=== PATIENT | male | born 1945 | race Caucasian/White ===

== ENCOUNTER 2022-05-29 05:48 | Inpatient (IN) | payer MEDICARE ==
[2022-05-22 12:53] LABS: BASOPHILS % (AUTO) 0.7 % (0-1); EOSINOPHILS # (AUTO) 0.2 X10'3 (0-0.9); EOSINOPHILS % (AUTO) 3.4 % (0-6); LYMPHOCYTES # (AUTO) 1.2 X10'3 (1.1-4.8); LYMPHOCYTES % (AUTO) 19.6 % (21-51); MEAN CORPUSCULAR HEMOGLOBIN 33.4 PG (27.0-31.0); MEAN CORPUSCULAR HGB CONC 33.8 g/dL (33.0-36.5); MEAN CORPUSCULAR VOLUME 98.9 FL (78-98); MEAN PLATELET VOLUME 7.3 FL (7.4-10.4); MONOCYTES # (AUTO) 0.5 X10'3 (0-0.9); MONOCYTES % (AUTO) 9.1 % (2-12); NEUTROPHILS % (AUTO) 67.2 % (42-75); PRE OP HEMATOCRIT 45.7 % (42.0-52.0); PRE OP HEMOGLOBIN 15.4 g/dL (14.0-17.9); PRE OP PLATELET COUNT 189 X10'3 (140-440); RED BLOOD COUNT 4.62 X10'6 (4.70-6.10); RED CELL DISTRIBUTION WIDTH 13.4 % (11.5-14.5)
[2022-05-22 13:11] LABS: ALBUMIN 3.5 G/DL (3.4-5.0); ALBUMIN/GLOBULIN RATIO 0.9 (1.1-1.5); ALKALINE PHOSPHATASE 90 IU/L (46-116); BLOOD UREA NITROGEN 17 MG/DL (7-18); BUN/CREATININE RATIO 19.3 (5.4-32.0); CALCIUM 8.8 MG/DL (8.5-10.1); CHLORIDE 109 MMOL/L (99-107); CREATININE 0.88 MG/DL (0.60-1.10); PRE OP ALT 22 U/L (30-65); PRE OP ANION GAP 4 (8-16); PRE OP AST 12 U/L (10-37); PRE OP BILIRUB, TOTAL 1.3 MG/DL (0.0-1.0); PRE OP GLUCOSE 117 MG/DL (70-104); PRE OP POTASSIUM 4.1 MMOL/L (3.4-5.1); PRE OP SODIUM 142 MMOL/L (135-145); TOTAL CARBON DIOXIDE 28.8 MMOL/L (24-32); TOTAL PROTEIN 7.2 G/DL (6.4-8.2); eGFR 84 ML/MIN
[2022-05-29] VITALS (23 sets, daily range): BP systolic 104–154; BP diastolic 49–80
[~2022-05-29] VITALS: Ht 177.8 cm; Wt 83.9 kg
[~2022-05-29 05:48] MED LIST: ATOR10TA70 PO; BETA1TAB20 PO; LISI5TAB22 PO; NOR5T PO; OMEG-79 PO; acetaminophen 325mg tablet PO ONE; ceFAZolin inj. 2,000 MG in dextrose 5%-water 100 ML IV ONE; celeCOXIB 100mg capsule PO ONE; famotidine 20mg tablet PO ONE; gabapentin 300mg capsule PO ONE; metoclopramide 5 mg/ml inj IV ONE; oxyCODONE SR 10mg (sust. release) tab -2 tabs (20mg) PO ONE; tranexamic acid inj. 1,000 MG in normal saline IV soln 100ML IV ONE; vancomycin 1,500 MG in NS 300ml IV soln IV ONE
[2022-05-29] MEDS ORDERED: acetaminophen 325mg tablet PO PRN (06:25)
[2022-05-29] MEDS ORDERED: HYDROmorphone 1 mg/ml syringe IV PRN (06:25)
[2022-05-29] MEDS ORDERED: naloxone 0.4 mg/ml inj IV PRN (06:25)
[2022-05-29] MEDS ORDERED: HYDROmorphone inj. 0.5 MG/0.5 ML DISP.SYRIN IV PRN (06:25)
[2022-05-29] MEDS ORDERED: ondansetron/PF 4mg/2ml inj IV PRN ×2 (06:25→09:30)
[2022-05-29] MEDS ORDERED: magnesium hydroxide 30ml (MOM) UD suspension PO PRN (06:25)
[2022-05-29] MEDS ORDERED: bisacodyl 10mg suppository rectal RC PRN (06:25)
[2022-05-29] MEDS ORDERED: HYDROcodone/acetaminophen 10/325mg tab PO PRN (06:25)
[2022-05-29] MEDS ORDERED: diphenhydrAMINE 25mg capsule PO PRN ×2 (06:25)
[2022-05-29] MEDS: ringers solution, lacted 1,000 ML IV SCH ×3 (06:47→12:51)
[2022-05-29] MEDS ORDERED: ROPIVAcaine 0.5% (5mg/ml) 30ml vial ONE ×2 (07:59→08:17)
[2022-05-29] MEDS ORDERED: ketorolac trometh. 30mg/ml inj. ONE (08:00)
[2022-05-29] MEDS ORDERED: vancomycin 1,000mg inj ONE (08:00)
[2022-05-29] MEDS ORDERED: epiNEPHrine 1 mg/ml inj ONE (08:00)
[2022-05-29] MEDS ORDERED: cloNIDine hcl/PF 100mcg/ml inj ONE (08:00)
[2022-05-29] MEDS ORDERED: MIDAZolam 1mg/ml 10ml vial ONE (08:19)
[2022-05-29] MEDS ORDERED: fentaNYL/PF 50MCG/1 ML 2ML syringe ONE ×2 (08:19→08:46)
[2022-05-29] MEDS ORDERED: ringers solution, lacted 1,000 ML IV SCH (09:30)
[2022-05-29] MEDS ORDERED: ROPIVAcaine 0.2% (10 MG/5 ML) BOLUS INJECTION ADDCANAL PRN (09:30)
[2022-05-29] MEDS ORDERED: fentaNYL/PF 50MCG/1 ML 2ML syringe IV PRN ×2 (09:30)
[2022-05-29] MEDS ORDERED: enalaprilat dihydrate 2.5mg/2ml vial IV PRN (09:30)
[2022-05-29] MEDS ORDERED: morphine 2 MG/ML inj. syringe IV PRN (09:30)
[2022-05-29] MEDS ORDERED: hydrALAZINE 20mg/ml inj. IV PRN (09:30)
[2022-05-29] MEDS ORDERED: morphine 4 MG/ML inj SYRINge IV PRN (09:30)
[2022-05-29] MEDS ORDERED: ROPIVAcaine 0.2%/PF PUMP/bolus 545 ML ADDCANAL SCH (09:30)
[2022-05-29] MEDS ORDERED: ROPIVAcaine 0.5% (5mg/ml) 30ml vial IJ ONE (09:49)
--- NOTE | 2022-05-29 12:36 | NUR ---
PATIENT HAS MET ALL CRITERIA FOR TRANSFER TO [facility]TH[facility] FLOOR. VSS. DRESSINGS INTACT. BED LOW, CALL LIGHT PRESENT AND 2 RAILS UP. RN PRESENT TO ACCEPT CARE OF PATIENT AND REPORT HAS BEEN CALLED. ALL QUESTIONS ANSWERED TO ACCEPTING RN. Addendum: 05/29/22 at 1241 by Omid Pinedo RN Amended: Links added.
[2022-05-29] MEDS ORDERED: tranexamic acid inj. 840 MG in normal saline 100ml IV soln 100 ML IV ONE (13:00)
[2022-05-29] MEDS: gabapentin 300mg capsule PO SCH ×2 (13:13→20:05)
[2022-05-29] MEDS: potassium cl 20mEq in 1/2 NS 1,000 ML IV SCH ×2 (13:46→21:00)
[2022-05-29] MEDS: cefazolin/dext.iso 2gm/100ml 100 ML IV SCH (16:13)
--- NOTE | 2022-05-29 18:30 | NUR ---
Patient in room [facility]TH[facility] 4022. I have received report from CASSIDY MARIANO and had the opportunity to ask questions and assume patient care.
[2022-05-29] MEDS: ascorbic acid 500mg tablet PO SCH (20:04)
[2022-05-29] MEDS ORDERED: VANCOMYCIN 1,500MG inj. 1,500 MG in normal saline 500ml IV soln 300 ML IV ONE (21:00)
[2022-05-29] MEDS ORDERED: atorvastatin 10mg tablet PO SCH (21:00)
[2022-05-29] MEDS ORDERED: sennosides 8.6mg tablet PO SCH (21:00)
[2022-05-30] MEDS: cefazolin/dext.iso 2gm/100ml 100 ML IV SCH (00:06)
[2022-05-30] MEDS: potassium cl 20mEq in 1/2 NS 1,000 ML IV SCH (00:06)
[2022-05-30 02:00] VITALS: BP 155/85
[2022-05-30] MEDS: HYDROcodone/acetaminophen 10/325mg tab PO PRN ×2 (03:23→09:31)
[2022-05-30 06:00] VITALS: BP 153/75
--- NOTE | 2022-05-30 06:30 | NUR ---
Problems reprioritized. Patient report given, questions answered & plan of care reviewed with SANDY MARIANO.
--- NOTE | 2022-05-30 06:47 | NUR ---
Patient in room [facility]TH[facility] 4022. I have received report from Rickey and had the opportunity to ask questions and assume patient care.
[2022-05-30 07:03] LABS: BASOPHILS % (AUTO) 0.4 % (0-1); EOSINOPHILS # (AUTO) 0.1 X10'3 (0-0.9); EOSINOPHILS % (AUTO) 1.2 % (0-6); HEMATOCRIT 41.8 % (42.0-52.0); HEMOGLOBIN 14.2 g/dl (14.0-17.9); LYMPHOCYTES # (AUTO) 0.7 X10'3 (1.1-4.8); LYMPHOCYTES % (AUTO) 8.6 % (21-51); MEAN CORPUSCULAR HEMOGLOBIN 33.7 PG (27.0-31.0); MEAN CORPUSCULAR VOLUME 99.1 FL (78-98); MEAN PLATELET VOLUME 7.3 FL (7.4-10.4); MONOCYTES # (AUTO) 0.7 X10'3 (0-0.9); MONOCYTES % (AUTO) 8.8 % (2-12); NEUTROPHILS # (AUTO) 6.8 X10'3 (1.8-7.7); PLATELET COUNT 183 X10'3 (140-440); RED BLOOD COUNT 4.22 X10'6 (4.70-6.10); WHITE BLOOD COUNT 8.4 X10'3 (4.5-11.0)
[2022-05-30 07:13] LABS: ANION GAP 9 (8-16); CHLORIDE 102 MMOL/L (99-107); POTASSIUM 3.9 MMOL/L (3.5-5.1); SODIUM 137 MMOL/L (135-145)
[2022-05-30] MEDS ORDERED: multivitamins, therapeutics tablet PO SCH (08:00)
[2022-05-30] MEDS ORDERED: lisinopril 5mg tablet PO SCH (08:00)
[2022-05-30] MEDS ORDERED: amLODIPine 5mg tablet PO SCH (08:00)
[2022-05-30] MEDS ORDERED: aspirin 325mg tablet PO SCH (08:30)
[2022-05-30] MEDS: gabapentin 300mg capsule PO SCH (09:23)
[2022-05-30] MEDS: ascorbic acid 500mg tablet PO SCH (09:24)
[2022-05-30 10:00] VITALS: BP 152/71
--- NOTE | 2022-05-30 11:21 | NUR ---
Reviewed discharge instructions with patient and family. Reviewed CARLEY dressing and On-Q pump instructions and how to discontinue. Pt verbalized understanding. Pt was dressed, family gathered belongings and pt was wheeled downstairs to be driven home by family. Pt did go home with a walker.
[2022-05-30] MEDS ORDERED: celeCOXIB 100mg capsule PO SCH (20:00)
== END 2022-05-30 11:18 | disposition home or self-care (01) | DRG 470 ==
LOC: PAS 05:48 → ORTHO 4S 06:29
PROVIDERS: ADMIT Orthopaedic Surgery; ATTEND Orthopaedic Surgery
PROC: 3E0T3BZ Introduction of Anesthetic Agent into Peripheral Nerves and Plexi, Percutaneous Approach (ICD-10-PCS; 2022-05-29)
PROC: 3E0T33Z Introduction of Anti-inflammatory into Peripheral Nerves and Plexi, Percutaneous Approach (ICD-10-PCS; 2022-05-29)
PROC: 0SRD0J9 Replacement of Left Knee Joint with Synthetic Substitute, Cemented, Open Approach (ICD-10-PCS; principal; 2022-05-29 08:36)
DX: M17.12 Unilateral primary osteoarthritis, left knee (principal); Z79.899 Other long term (current) drug therapy; M21.162 Varus deformity, not elsewhere classified, left knee
CPT/HCPCS: 36415; 71045; 73560; 80051; 80053; 82948; 85025; 86885; 86900; 86901; 87081; 87811; 97110; 97116; 97161; 97530; A4215; A6258; A7000; C1713; C1776; G0378; J0171; J0690; J0735; J1170; J1885; J2250; J2765; J2795; J3010; J3370; J3480; J3490; J7040; J7060; J7120